=== PATIENT | female | born 1975 | race Two or more races ===

== ENCOUNTER 2022-11-14 16:31 | Emergency (ER) | payer OTHER ==
[~2022-11-14] VITALS: Ht 162.6 cm; Wt 65.8 kg
[2022-11-14 16:36] VITALS: BP 123/68; PULSE 100; RESP 17; TEMP 97.7; O2SAT 99
[2022-11-14] MEDS ORDERED: DEXAMETHASONE 10 MG/ML VIAL IM ONE (17:30)
[2022-11-14] MEDS ORDERED: LID5T TP (18:03)
[2022-11-14] MEDS ORDERED: DEXAMETHASONE 10 MG/ML VIAL ONE (18:34)
[2022-11-14 18:50] VITALS: BP 122/68; PULSE 88; RESP 17; TEMP 98; O2SAT 100
== END 2022-11-14 18:50 | disposition home or self-care (01) ==
LOC: MED 16:31
DX: S40.012A Contusion of left shoulder, initial encounter (principal); J45.909 Unspecified asthma, uncomplicated; Z88.6 Allergy status to analgesic agent; Z79.899 Other long term (current) drug therapy; W19.XXXA Unspecified fall, initial encounter; Y93.89 Activity, other specified; Y92.89 Other specified places as the place of occurrence of the external cause; Y99.8 Other external cause status
CPT/HCPCS: 73030; 96372; 99283; J1100